=== PATIENT | female | born 1985 | race Two or more races ===

== ENCOUNTER 2017-05-06 12:28 | Emergency (ER) | payer SELFPAY ==
[~2017-05-06] VITALS: Ht 154.9 cm; Wt 72.6 kg
[2017-05-06 13:36] LABS: URINE SOURCE CLEAN CATCH
[2017-05-06 13:39] LABS: URINE APPEARANCE CLEAR; URINE BILIRUBIN NEG (NEG); URINE BLOOD 2+ (NEG); URINE COLOR YELLOW; URINE GLUCOSE NEG (NORM); URINE KETONE NEG (NEG); URINE LEUKOCYTE ESTERASE NEG (NEG); URINE NITRATE NEG (NEG); URINE PROTEIN NEG (NEG); URINE UROBILINOGEN 0.2 MG/DL (NORM)
[2017-05-06 13:41] LABS: MICRO INDICATED? YES
[2017-05-06 13:47] LABS: CULTURE INDICATED? NO; URINE BACTERIA NEG (NEG); URINE MUCUS PRESENT; URINE RBC 100-200 /[HPF] (0-2); URINE SQUAMOUS EPITHELIAL CELL MODERATE /[HPF]; URINE WBC 0-2 /[HPF] (0-5)
[2017-05-06 14:01] LABS: BUN/CREATININE RATIO 17.5; CALCIUM SERUM 8.7 mg/dL (8.4-10.2); CREATININE SERUM 0.8 mg/dL (0.6-1.4); GLOM FILT RATE Estimated 99.7 mL/min (>60); POTASSIUM 3.4 mmol/L (3.5-5.1)
== END 2017-05-06 14:32 | disposition home or self-care (01) ==
LOC: SED 12:28
PROVIDERS: Emergency Medicine
DX: R10.9 Unspecified abdominal pain (principal); R19.7 Diarrhea, unspecified
CPT/HCPCS: 36415; 80048; 81003; 84703; 96361; 96374; 96375; 99284; J2405